=== PATIENT | male | born 1960 | race Caucasian/White ===

== ENCOUNTER 2018-08-16 07:19 | Day surgery (SDC) | payer MEDICAID ==
[~2018-08-16 07:19] MED LIST: ACETAMINOPHEN 1,000 MG/100 ML BTL IV ONE; CEFAZOLIN 2 Gram 2 GM/50 ML BAG IVPB ONE
[2018-08-16] MEDS ORDERED: FENTANYL PF 100MCG/2ML VIAL IV ONE (07:20)
[2018-08-16] MEDS ORDERED: MIDAZOLAM HCL 2MG/2ML VIAL IV ONE (07:20)
[2018-08-16] MEDS ORDERED: SEVOFLURANE 250 ML INH ONE (07:20)
[2018-08-16] MEDS ORDERED: ROPIVACAINE HCL (NAROPIN) /PF 5MG/ML 20ML VIAL IV ONE ×2 (07:20)
[2018-08-16] MEDS ORDERED: DEXAMETHASONE 4 MG/ML 1ML VIAL IVP ONE ×3 (07:20)
[2018-08-16] MEDS ORDERED: 0.9 % SODIUM CHLORIDE 10 ML VIAL IVP ONE ×2 (07:20)
[2018-08-16] MEDS ORDERED: HYDROCODONE/APAP 5/325MG TABLET PO ONE ×2 (07:20→12:32)
[2018-08-16] MEDS ORDERED: BUPIVACAINE 0.5% W/EPI MPF 30 ML VIAL IVP ONE (07:20)
[2018-08-16] MEDS ORDERED: HYDROMORPHONE HCL 2 MG/ML VIAL IV ONE (07:20)
[2018-08-16] MEDS ORDERED: PROPOFOL 10 MG/ML VIAL IV ONE (07:20)
[2018-08-16] MEDS ORDERED: ONDANSETRON HCL IV 4 MG/2 ML VIAL IVP ONE (07:20)
[2018-08-16] MEDS ORDERED: LIDOCAINE 2% MDV (20MG/ML) 20ML VIAL IV ONE (07:20)
[2018-08-16] MEDS ORDERED: RINGERS SOLUTION,LACTATED 500 ML IV ONE (11:55)
--- NOTE | 2018-08-16 16:00 | Operative Note ---
DATE OF SURGERY: 08/16/2018 Surgeon: Hugh Crespo DO PREOPERATIVE DIAGNOSIS: Bilateral inguinal hernias. POSTOPERATIVE DIAGNOSIS: Bilateral inguinal hernias, direct. OPERATION: Open bilateral inguinal herniorrhaphy with mesh. Indication: The patient is a 58-year-old male who presented to the clinic with pain and bulging in his left inguinal region. On exam, he had bilateral hernias. We did discuss repair. Risks, benefits, and alternatives were discussed. Risks include bleeding, infection, acute or chronic pain, recurrence. He understood this fully. Thereafter, consent was signed and questions answered. PROCEDURE: He was taken to the operating room and placed in a supine position. General anesthesia was administered per the department of anesthesia. The patient's inguinal region was shaved of hair and prepped and draped in a sterile fashion. Starting on the right, the oblique region was anesthetized with a total of 8 mL of 0.25% Sensorcaine with epinephrine. A 3 cm oblique incision was made. This was carried down through the subcutaneous tissue to the aponeurosis of the external oblique. This was cleaned off. A mago was made with a scalpel blade through the superficial inguinal ring. Care was taken not to injure the underlying ilioinguinal nerve or spermatic cord. Superior and inferior flaps were developed. [place] was placed on the spermatic cord. This was retracted laterally with a Benito drain. The patient had a moderate-size direct hernia noted. Cremasteric fibers were taken down. There was no indirect hernia. At this time, the floor was imbricated holding back the direct sac. A right-sided ProGrip mesh was obtained. This was placed covering the floor of the inguinal canal with excellent overlap of the pubic tubercle. Stitches went to the level of pubic tubercle, the second portion of the inguinal ligament, and the internal oblique aponeurosis. The lateral triangle was protected with the lateral aspect of the mesh. At this time, the aponeurosis was closed over the cord with 2-0 Vicryl, the Monica layer was closed with 3-0 Vicryl, and skin was closed with 4-0 Vicryl. The patient was then turned to the left side where an identical procedure was done. Here, the patient had mirror pathology with a direct inguinal hernia, which was repaired in identical fashion. The patient was taken to the recovery room in satisfactory condition. FINDINGS ON SURGERY: Bilateral inguinal hernias, direct, repaired as above. CC: HALI Mera
== END 2018-08-16 13:14 | disposition home or self-care (01) ==
LOC: SUR 07:19
PROVIDERS: ATTEND Surgery
DX: K40.20 Bilateral inguinal hernia, without obstruction or gangrene, not specified as recurrent (principal); R33.9 Retention of urine, unspecified; F12.90 Cannabis use, unspecified, uncomplicated
CPT/HCPCS: 76942; J2405; J7120